=== PATIENT | female | born 1990 | race Caucasian/White ===

== ENCOUNTER → 2022-04-27 15:05 | Outpatient (CLI) | payer BC, SELFPAY ==
[2022-04-27 18:57] LABS: Adenovirus,PCR Not Detected (NotDetected); Bordetella Pertussis Not Detected (NotDetected); Chlamydophila Pneumoniae, PCR Not Detected (NotDetected); Coronavirus 19, PCR Not Detected (NotDetected); Coronavirus 229E Not Detected (NotDetected); Coronavirus NL63 Not Detected (NotDetected); Coronavirus OC43 Not Detected (NotDetected); Coronovirus HKU1,PCR Not Detected (NotDetected); Human Metapneumovirus Not Detected (NotDetected); Influenza A, PCR Not Detected (NotDetected); Influenza AH1, 2009 Not Detected (NotDetected); Influenza AH1, PCR Not Detected (NotDetected); Influenza AH3,PCR Not Detected (NotDetected); Influenza B, PCR Not Detected (NotDetected); Mycoplasma Pneumoniae, PCR Not Detected (NotDetected); Parainfluenza 1, PCR Not Detected (NotDetected); Parainfluenza 2, PCR Not Detected (NotDetected); Parainfluenza 3, PCR Not Detected (NotDetected); Parainfluenza 4, PCR Not Detected (NotDetected); Respiratory Syncytial Virus Not Detected (NotDetected); Rhinovirus/Enterovirus Not Detected (NotDetected)
== END ==
PROVIDERS: PCP Nurse Practitioner; Visit Provider Nurse Practitioner
DX: U07.1 COVID-19 (principal)
CPT/HCPCS: 87581; 87632; 87798; C9803; U0003; U0005

== ENCOUNTER → 2022-05-02 14:24 | Outpatient (CLI) | payer BC, SELFPAY ==
[2022-05-02 19:09] LABS: Adenovirus,PCR Not Detected (NotDetected); Bordetella Pertussis Not Detected (NotDetected); Chlamydophila Pneumoniae, PCR Not Detected (NotDetected); Coronavirus 19, PCR Not Detected (NotDetected); Coronavirus 229E Not Detected (NotDetected); Coronavirus NL63 Not Detected (NotDetected); Coronavirus OC43 Not Detected (NotDetected); Coronovirus HKU1,PCR Not Detected (NotDetected); Human Metapneumovirus Not Detected (NotDetected); Influenza A, PCR Not Detected (NotDetected); Influenza AH1, PCR Not Detected (NotDetected); Influenza AH3,PCR Not Detected (NotDetected); Influenza B, PCR Not Detected (NotDetected); Mycoplasma Pneumoniae, PCR Not Detected (NotDetected); Parainfluenza 1, PCR Not Detected (NotDetected); Parainfluenza 2, PCR Not Detected (NotDetected); Parainfluenza 3, PCR Not Detected (NotDetected); Parainfluenza 4, PCR Not Detected (NotDetected); Respiratory Syncytial Virus Not Detected (NotDetected); Rhinovirus/Enterovirus Not Detected (NotDetected)
[2022-05-05 10:40] LABS: Influenza AH1, 2009 Detected (NotDetected)
== END ==
PROVIDERS: PCP Nurse Practitioner; Visit Provider Nurse Practitioner
DX: J09.X2 Influenza due to identified novel influenza A virus with other respiratory manifestations (principal)
CPT/HCPCS: 87581; 87632; 87798; C9803; U0003; U0005

== ENCOUNTER → 2022-09-20 23:14 | Outpatient (CLI) | payer BC, SELFPAY ==
[2022-09-20 18:39] LABS: Chloride 99 mmol/L (98-107); Potassium 4.4 mmoL/L (3.5-5.1); Sodium 139 mmol/L (136-145)
[2022-09-20 18:41] LABS: Blood Urea Nitrogen 12 mg/dl (7-17); Estimated Glomerular Filt Rate 115 ml/min (>60); GFR (African American) 139 ML/MIN (>60)
[2022-09-20 18:42] LABS: Alanine Aminotransferase 14 U/L (12-78); Albumin Level 4.1 g/dl (3.5-5.0); Albumin/Globulin Ratio 1.4 (1.1-1.8); Alkaline Phosphatase 76 U/L (38-126); Anion Gap 17.4 mEq/L (5-15); Aspartate Amino Transferase 18 U/L (14-36); Bilirubin,Total 0.7 mg/dl (0.2-1.3); Carbon Dioxide 27 mmol/L (22.0-30.0); Cholesterol 185 mg/dl (140-200); Globulin 2.9 g/dL (1.3-3.2); Glucose 83 mg/dl (74-100); Triglycerides 35 mg/dl (30-150); VLDL Cholesterol 7 mg/dL (0-40)
[2022-09-20 18:43] LABS: HDL Cholesterol 61 mg/dl (40-60)
[2022-09-20 18:50] LABS: Basophils # 0.1 K/mm3 (0-0.2); Eosinophils # 0.1 K/mm3 (0.0-0.4); Eosinophils % 1.7 % (0.1-12.0); Hematocrit 42.8 % (37.0-47.0); Hemoglobin 13.7 g/dL (12.2-16.2); Lymphocytes % 42.3 % (10-50); Mean Corpuscular HGB Conc 32.1 g/dL (31.8-35.4); Mean Corpuscular Hemoglobin 26.8 pg (27.0-31.2); Mean Corpuscular Volume 83.4 fl (81-99); Mean Platelet Volume 8.8 fl (7.4-10.4); Monocytes # 0.3 K/mm3 (0.1-1.0); Monocytes % 6.9 % (1.7-9.3); Neutrophils # 2.2 K/mm3 (1.8-7.8); Neutrophils % 48.1 % (37.0-80.0); Platelet Count 382 K/mm3 (142-424); Red Blood Count 5.13 M/mm3 (4.20-5.40); Red Cell Distribution Width 14.5 % (11.5-17.5); White Blood Count 4.6 K/mm3 (4.8-10.8)
[2022-09-20 18:54] LABS: Direct LDL Cholesterol 108.93 mg/dL (100-129)
[2022-09-20 19:05] LABS: Hemoglobin A1C 5.1 % (4.0-6.0)
[2022-09-20 19:11] LABS: Thyroid Stimulating Hormone 0.76 uIU/mL (0.465-4.68)
[2022-09-22 09:44] LABS: Measles Antibodies, IgG >300.0 AU/mL (Immune >16.4); Rubella Antibodies, IgG 2.87 index (Immune >0.99); Varicella Zoster IgG 2232 index (Immune >165)
[2022-09-22 12:13] LABS: Hep A Ab, Total Positive (Negative); Hep B Core Ab, Total Negative (Negative); Hep B Surface Ab, Qual Reactive (.)
== END ==
PROVIDERS: PCP Nurse Practitioner; Visit Provider Nurse Practitioner
DX: Z01.84 Encounter for antibody response examination (principal); Z13.0 Encounter for screening for diseases of the blood and blood-forming organs and certain disorders involving the immune mechanism; Z13.1 Encounter for screening for diabetes mellitus; Z13.220 Encounter for screening for lipoid disorders; Z13.29 Encounter for screening for other suspected endocrine disorder
CPT/HCPCS: 80053; 80061; 83036; 84443; 85025; 86704; 86706; 86708; 86735; 86762; 86765; 86787